=== PATIENT | female | born 1995 | race Caucasian/White ===

== ENCOUNTER 2023-09-07 18:16 | Emergency (ER) | payer OTHER, SELFPAY ==
--- NOTE | ~2023-09-07 | XR_ITS ---
EXAMINATION: XR chest 2V Exam Date/Time: 09/07/2023 18:35 CDT HISTORY: palpitations X 2.5 WEEKS Comparison: None. RESULT: Lines, tubes, and devices: None. Lungs and pleura: Clear. Cardiomediastinal silhouette: Normal. Other: No acute osseous or upper abdominal finding. IMPRESSION: No acute cardiopulmonary process. Reviewed, dictated and finalized at location K.
[2023-09-07 18:17] VITALS: BP 156/98; PULSE 100; RESP 16; TEMP 36.4; O2SAT 100
--- NOTE | 2023-09-07 18:20 | ECG_ITS ---
Measurements Intervals [place] Rate: 100 P: 67 NE: 149 QRS: 35 QRSD: 85 T: 31 QT: 326 QTc: 421 Interpretive Statements SINUS TACHYCARDIA LEFT ATRIAL ENLARGEMENT BORDERLINE T WAVE ABNORMALITY- INFERIOR LEADS BORDERLINE ECG NO PREVIOUS ECG AVAILABLE FOR COMPARISON Electronically Signed On 09-07-2023 19:27:37 CDT by Jeb Forte D.O.
--- NOTE | 2023-09-07 19:04 | ED.GENADULT ---
HPI - General Adult General Chief complaint: Arrhythmia/Palpitations <Kimberly Gant October, [employer] - Last Filed: 09/07/23 19:09> Stated complaint: palpitations <Kimberly Gant October, [employer] - Last Filed: 09/07/23 19:09> Time Seen by Provider: 09/07/23 19:05 <Kimberly Gant October, [employer] - Last Filed: 09/07/23 19:09> Focused HPI: Maria Del Rosario Haro is a 28 y/o female No PMHx / not on any daily medications, who presents with reports of having heart palpitations for about 2 and half weeks, she thought it was anxiety she just moved here, but today she says today was not even stressful and she states that her heart palpitations worse today, she went to the and they sent her here. No chest pain but states that she feels a little short of breath during the episodes. The palpitations only last a few seconds or a faint flutter and says it makes her feel like she needs to cough. GENERAL: Well-appearing, well-nourished, and in no acute distress. HEAD: Normocephalic, atraumatic. CHEST: Clear to auscultation. ?No respiratory distress. HEART: Regular rate and rhythm.? NEURO: ?Alert and oriented x3. Patient screened in triage and initial orders placed.? ?Additional care and disposition to be based upon?diagnostic testing and treatment. <Kimberly Gant October, - Last Filed: 09/07/23 19:09> Related Data Allergies/adverse reactions: Allergies Allergy/AdvReac Type Severity Reaction Status Date / Time nitrofurantoin Allergy Unknown Verified 09/07/23 18:25 [From Macrobid] Sulfa (Sulfonamide Allergy Unknown Verified 09/07/23 18:25 Antibiotics) <Kimberly Gant October, [employer] - Last Filed: 09/07/23 19:09> Review of Systems Review of Systems: All systems as dictated in HPI <Chuy Granado PA-C - Last Filed: 09/08/23 03:28> Exam Narrative: GENERAL: Well-appearing, well-nourished, and in no acute distress. HEAD: Normocephalic, atraumatic. EYES: PERRLA and EOMI. ENT: Nares clear, no rhinorrhea or epistaxis. Mucous membranes moist. Oropharynx without tonsillar hypertrophy exudate or other lesions. NECK: Supple. No adenopathy or masses. CHEST: No respiratory distress. Clear to auscultation. No wheezes rales or rhonchi HEART: Regular rate and rhythm. No murmur heard. Normal peripheral pulses. ABDOMEN: Soft, nontender, nondistended, normal active bowel sounds. MSK: Normal range of motion. No edema. SKIN: Warm, dry, no rash. NEURO: Alert and oriented x3. No focal deficits. PSYCH: Normal mood and affect. <Chuy Granado PA-C - Last Filed: 09/08/23 03:28> Course Vital Signs Vital signs: Vital Signs Temperature 97.6 F 09/07/23 18:17 Pulse Rate 100 09/07/23 18:17 Respiratory Rate 16 09/07/23 18:17 Blood Pressure 156/98 H 09/07/23 18:17 Pulse Oximetry 100 09/07/23 18:17 Temperature 97.6 F 09/07/23 18:17 Pulse Rate 65 09/07/23 23:56 Respiratory Rate 15 09/07/23 23:52 Blood Pressure 135/90 09/07/23 23:52 Pulse Oximetry 100 09/07/23 23:52 <Kimberly Garcia APRN - Last Filed: 09/07/23 19:09> Vital Signs Temperature 97.6 F 09/07/23 18:17 Pulse Rate 100 09/07/23 18:17 Respiratory Rate 16 09/07/23 18:17 Blood Pressure 156/98 H 09/07/23 18:17 Pulse Oximetry 100 09/07/23 18:17 Temperature 97.6 F 09/07/23 18:17 Pulse Rate 65 09/07/23 23:56 Respiratory Rate 15 09/07/23 23:52 Blood Pressure 135/90 09/07/23 23:52 Pulse Oximetry 100 09/07/23 23:52 <Chuy Granado PA-C - Last Filed: 09/08/23 03:28> Medical Decision Making MDM Narrative Medical decision making narrative: This is a 28-year-old female who presents to the ED with chief complaint of intermittent palpitations. Vitals are normal. Exam is unremarkable. EKG shows sinus rhythm. No dysrhythmia. No acute ischemic findings. Lab work shows normal CBC and normal CMP. Troponin is negative. D-dimer is ordered and the [facility] triage process and is very mildly elevated at 0.61. She has no history of P
[2023-09-07 20:43] LABS: Basophils Absolute Auto 0.1 K/mm3 (0.0-0.1); Basophils Percent Auto 0.9 % (0.2-1.2); Eosinophils Absolute Auto 0.2 K/mm3 (0-0.3); Eosinophils Percent Auto 2.5 % (0-4.4); Hematocrit 37.7 % (37.0-47.0); Hemoglobin 11.6 g/dL (12.0-15.0); Immature Granulocyte Absolute 0.01 K/mm3 (0.00-0.031); Immature Granulocyte Percent A 0.2 % (0-0.5); Lymphocytes Absolute Auto 2.25 K/mm3 (0.9-3.2); Mean Corpuscular HGB Conc 30.8 g/dl (32-36); Mean Corpuscular Hemoglobin 26.9 pg (26-34); Mean Corpuscular Volume 87.5 fl (80-100); Mean Platelet Volume 10.9 fl (7.4-10.4); Monocytes Absolute Auto 0.5 K/mm3 (0.1-0.6); Monocytes Percent Auto 7.5 % (2.6-8.5); Neutrophils Absolute Auto 3.5 K/mm3 (1.3-6.7); Neutrophils Percent Auto 53.9 % (45.5-73.1); Platelet Count Result 224 k/mm3 (150-375); Red Blood Count 4.31 M/mm3 (4.2-5.4); Red Cell Distribution Width 13.2 % (11.5-14.5); White Blood Count 6.4 K/mm3 (4.5-10.0)
[2023-09-07 20:54] LABS: Prothrombin Time 14.2 Seconds (11.1-14.7)
[2023-09-07 20:55] LABS: Partial Thromboplastin Time 28.6 Seconds (22.3-36.8)
[2023-09-07 20:58] LABS: Alanine Aminotransferase 13 U/L (6-35); Albumin Level 4.7 g/dL (3.5-5.1); Alkaline Phosphatase 89 U/L (38-126); Anion Gap 7 mmol/L (8-16); Aspartate Amino Transferase 26 U/L (14-36); Bilirubin,Total 0.5 mg/dL (0.2-1.3); Blood Urea Nitrogen 11 mg/dL (7-17); Calcium 9.7 mg/dL (8.4-10.2); Carbon Dioxide 29 mmol/L (22-30); Chloride 101 mmol/L (98-107); Estimated CRCL calculation 128 ml/min; Estimated Glomerular Filt Rate > 60; Glucose 101 mg/dL (65-110); Lipase 60 U/L (23-300); Potassium 3.8 mmol/L (3.4-5.0); Sodium 137 mmol/L (137-145)
[2023-09-07 21:02] LABS: D Dimer 0.61 ug/mL (<0.48)
[2023-09-07 21:08] LABS: Troponin I < 0.012 ng/mL (0.000-0.034)
[2023-09-07 23:52] VITALS: BP 135/90; PULSE 65; RESP 15; O2SAT 100
[2023-09-07 23:56] VITALS: PULSE 65
== END 2023-09-08 00:04 | disposition home or self-care (01) ==
PROVIDERS: Emergency Medicine; Nurse Practitioner Family; Emergency Provider Physician Assistant; PCP Obstetrics & Gynecology
DX: R00.2 Palpitations (principal); R00.0 Tachycardia, unspecified; R94.31 Abnormal electrocardiogram [ECG] [EKG]
CPT/HCPCS: 36415; 71046; 80053; 83690; 84484; 85025; 85380; 85610; 85730; 93005; 99284